=== PATIENT | male | born 1980 | race American Indian/Alaskan Native ===

== ENCOUNTER 2020-07-30 07:34 | Day surgery (SDC) | payer OTHER ==
[~2020-07-30 07:34] MED LIST: LACTATED RINGERS 1,000 ML IV SCH; MIDAZOLAM 2 MG/2 ML INJ IV NR
[2020-07-30] MEDS ORDERED: ONDANSETRON 4 MG/2 ML INJ IV PRN (08:29)
[2020-07-30] MEDS ORDERED: fentaNYL 100 MCG/2 ML INJ IV PRN (08:29)
[2020-07-30] MEDS ORDERED: HYDROcodone/ACETAMINOPHEN 5-325 MG TAB PO PRN (08:29)
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
--- NOTE | 2020-07-30 08:29 | Anesthesia Day of Surgery ---
Anesthesia Day of Surgery - Day of Surgery Patient Examined: Yes Patient H&P Reviewed: Yes Patient is NPO: Yes
[2020-07-30] MEDS ORDERED: ceFAZolin/STERILE WATER 2 GM/20 ML SYRINGE IV NR (09:00)
[2020-07-30] MEDS ORDERED: LIDOCAINE MPF (2%) 20 MG/1 ML VIAL 5 ML ONE (09:34)
[2020-07-30] MEDS ORDERED: fentaNYL 100 MCG/2 ML INJ ONE ×2 (09:35→10:54)
[2020-07-30] MEDS ORDERED: propofoL 200 MG/20 ML VIAL IV ONE (09:35)
[2020-07-30] MEDS ORDERED: dexAMETHasone 20 MG/5 ML VIAL ONE (10:30)
[2020-07-30] MEDS ORDERED: ONDANSETRON 4 MG/2 ML INJ ONE (10:30)
[2020-07-30] MEDS ORDERED: WATER FOR IRRIG STERILE 2000 ML IR ONE ×3 (10:31→11:14)
[2020-07-30] MEDS ORDERED: ePHEDrine SULFATE 50 MG/1 ML INJ ONE (10:48)
--- NOTE | 2020-07-30 11:46 | Short Stay Summary ---
Short Stay Documentation Date of service: 07/30/20 - History H&P: obtained from office - Allergies and Medications Current Medications: Allergies No Known Allergies Allergy (Verified 07/24/20 16:04) Home Medications Medication Instructions Recorded Confirmed Last Taken Type amLODIPine [Norvasc] 10 mg PO DAILY 07/24/20 07/30/20 07/30/20 07:00 History hydroCHLOROthiazide [Hctz] 12.5 mg PO QDAY 07/24/20 07/30/20 07/29/20 09:00 History metFORMIN [Glucophage] 500 mg PO QDAY 07/24/20 07/30/20 07/29/20 09:00 History Active Medications Hydrocodone Bitart/Acetaminophen (Hydrocodone/Acetaminophen 5-325 Mg Tab) 2 each PO ONCE PRN PRN Reason: Pain, Moderate (4-6) Stop: 07/30/20 16:00 Cefazolin Sodium (Cefazolin/Sterile Water 2 Gm/20 Ml Syringe) 2 gm IV PREOP NR Stop: 07/30/20 20:00 Fentanyl (Fentanyl 100 Mcg/2 Ml Inj) 50 mcg IV Q5MIN PRN PRN Reason: Pain , Severe (7-10) Stop: 07/30/20 23:00 Lactated Ringer's (Lactated Ringers) 1,000 mls @ 100 mls/hr IV DIRECT WARNER Stop: 07/30/20 23:59 Last Admin: 07/30/20 08:45 Dose: 100 mls/hr Documented by: Midazolam HCl (Midazolam 2 Mg/2 Ml Inj) 2 mg IV PREOP NR Stop: 07/30/20 21:00 Last Admin: 07/30/20 09:10 Dose: 2 mg Documented by: Ondansetron HCl (Ondansetron 4 Mg/2 Ml Inj) 4 mg IV ONCE PRN PRN Reason: Nausea And Vomiting Stop: 07/30/20 16:00 - Brief post op/procedure progress note Date of procedure: 07/30/20 Pre-op diagnosis: left renal stone Post-op diagnosis: same Procedure: cysto, LEFT ESWL Anesthesia: JEWELSA Surgeon: LUZ MARIA LOPEZ Condition: stable - Hospital course Hospital course: bactrim,ultra,norco,post op info on chart - Disposition Condition at discharge: Stable Disposition: DC-01 TO HOME OR SELFCARE Short Stay Discharge Plan Follow up with: PRIMARY CARE, [Primary Care Provider] - 7 Days
--- NOTE | 2020-07-30 11:57 | Operative Report ---
PREOPERATIVE DIAGNOSES: Left renal stone, hematuria, history of smoking history. POSTOPERATIVE DIAGNOSIS: Left renal stone, hematuria, history of smoking history. PROCEDURE: Cystoscopy, left extracorporal shock wave lithotripsy, staged procedure. SURGEON: Alejandro Fields MD ANESTHESIA: General. ESTIMATED BLOOD LOSS: Minimal. FLUIDS: Crystalloid. COMPLICATIONS: No complications. INDICATIONS: This patient is a 40-year-old gentleman with history of hematuria and left flank pain. CT abdomen and pelvis revealed a 10 mm stone on the left side. Discussed options. He agreed to proceed with surgical intervention. DESCRIPTION OF PROCEDURE: The patient was taken to the operative suite, placed in a supine position. After adequate general anesthesia, first he was prepped and draped in a sterile fashion. Flexible cystoscopy was performed. No urethral abnormalities. Prostate nonobstructing. Bladder, both ureteral orifices. No tumors or stones were noted. Scope was then removed. Next, the left kidney stone was localized in 2 planes using fluoroscopy. Extracorporal shock wave lithotripsy was administered with a maximum kV of 8 and 2500 shocks. Renal pause, 5-minute renal pause after 200 shocks. The patient tolerated the procedure well and was extubated and taken to recovery room. He will go home on Bactrim, [place] and Ultram. JOB# [id number] [facility]
[2020-07-30 13:43] VITALS: BP 147/92
--- NOTE | 2020-07-30 19:23 | Post Anesthesia Evaluation ---
- Post Anesthesia Evaluation Patient Participated: Yes Airway Patent: Yes Stable Respiratory Function: Yes Nausea/Vomiting: No Temp > 96.8F: Yes Pain Manageable: Yes Adequeate Hydration: Yes Anesthesia Complications: No
== END 2020-07-30 07:35 | disposition home or self-care (01) ==
LOC: OR 07:34
PROVIDERS: ATTEND Urology
DX: N20.0 Calculus of kidney (principal); R31.9 Hematuria, unspecified; I10 Essential (primary) hypertension; E11.9 Type 2 diabetes mellitus without complications; F17.210 Nicotine dependence, cigarettes, uncomplicated; Z98.890 Other specified postprocedural states; Z79.899 Other long term (current) drug therapy; Z79.84 Long term (current) use of oral hypoglycemic drugs
CPT/HCPCS: 50590; 82962; A4217; J0690; J1100; J2250; J2405; J2704; J3010; J7120; Q9967

== ENCOUNTER 2020-08-27 07:19 | Day surgery (SDC) | payer OTHER ==
[2020-08-27] MEDS ORDERED: ceFAZolin/STERILE WATER 2 GM/20 ML SYRINGE IV NR (08:05)
--- NOTE | 2020-08-27 08:23 | Anesthesia Consultation ---
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), Chipped (#8) ROM Head & Neck: Adequate Mental/Hyoid Distance: Adequate Mallampati Class: Class II Intubation Access Assessment: Probably Good - Pre-Operative Health Status ASA Pre-Surgery Classification: ASA2 Proposed Anesthetic Plan: General - Pulmonary Hx Smoking: Yes (06/15-1/ PPD X15 YR) Hx Respiratory Symptoms: No Hx Sleep Apnea: No (RAMANA PRE SCREEN LOW RISK) - Cardiovascular System Hx Hypertension: Yes (took amlodipine this morning) Hx Heart Attack/AMI: No - Central Nervous System CVA: No - Endocrine Hx Renal Disease: No Hx Liver Disease: No Hx Non-Insulin Dependent Diabetes: Yes Hx Thyroid Disease: No - Additional Comments Anesthesia Medical History Comments: No hx anesthetic complications. Requests anxiolytic prior to IV placement. PO versed ordered.
--- NOTE | 2020-08-27 08:24 | Anesthesia Day of Surgery ---
Anesthesia Day of Surgery - Day of Surgery Patient Examined: Yes Patient H&P Reviewed: Yes Patient is NPO: Yes
[2020-08-27] MEDS ORDERED: HYDROcodone/ACETAMINOPHEN 5-325 MG TAB PO PRN (08:30)
[2020-08-27] MEDS ORDERED: ONDANSETRON 4 MG/2 ML INJ IV PRN (08:30)
[2020-08-27] MEDS ORDERED: MIDAZOLAM 10 MG/5 ML ORAL LIQD PO NR (09:00)
[2020-08-27] MEDS ORDERED: HYDROmorphone 1 MG/1 ML INJ ONE (09:34)
[2020-08-27] MEDS ORDERED: LIDOCAINE MPF (2%) 20 MG/1 ML VIAL 5 ML ONE (09:35)
[2020-08-27] MEDS ORDERED: propofoL 200 MG/20 ML VIAL IV ONE (09:35)
--- NOTE | 2020-08-27 09:43 | Post Operative Note ---
Date of procedure: 08/27/20 Pre-op diagnosis: r renal stone Post-op diagnosis: same Findings: as above Procedure: eswl Anesthesia: PITA Surgeon: SHAQUILLE PETERS Estimated blood loss: none Condition: stable Disposition: PACU
--- NOTE | 2020-08-27 09:44 | Discharge Summary ---
Short Stay Discharge Plan Activity: other (no straining ) Weight Bearing Status: Full Weight Bearing Diet: low fat, low cholesterol, low salt Special Instructions: other (inc fluids ) Follow up with: PRIMARY CARE, [Primary Care Provider] - 7 Days LUZ MARIA LOPEZ MD [Staff Physician] - 7 Days
--- NOTE | 2020-08-27 10:23 | Operative Report ---
PREOPERATIVE DIAGNOSIS: Left renal stone. POSTOPERATIVE DIAGNOSIS: Left renal stone. PROCEDURE: Second stage lithotripsy. SURGEON: Dr. Levy. ANESTHESIA: General. FINDINGS: This is a gentleman with an 8-9 mm stone in left kidney, intermittent discomfort, now presents for second stage lithotripsy. DESCRIPTION OF PROCEDURE: The patient was brought to lithotripsy and placed on the table. Stone was easily localized on both the AP and oblique image. Shocks were begun at 1 kV, renal pause was carried out and shocks were continued to 8 kV. We carried this quite slowly at 60 shocks per minute to try to fragment it. It did spread out. I suspect he may need further treatment. The stone is still present, but it did change in consistency and density. The patient tolerated the procedure well and brought to recovery in stable condition. JOB# [id number] [facility]/JULIO
[2020-08-27 11:27] VITALS: BP 110/60
== END 2020-08-27 12:15 | disposition home or self-care (01) ==
LOC: OR 07:19
PROVIDERS: ATTEND Urology
DX: N20.0 Calculus of kidney (principal); I10 Essential (primary) hypertension; E11.9 Type 2 diabetes mellitus without complications; F17.210 Nicotine dependence, cigarettes, uncomplicated; Z79.899 Other long term (current) drug therapy; Z98.890 Other specified postprocedural states; Z79.84 Long term (current) use of oral hypoglycemic drugs
CPT/HCPCS: 50590; 82962; J1170; J2704; J7120; J2250